=== PATIENT | female | born 1980 | race Caucasian/White ===

== ENCOUNTER 2021-03-19 16:03 | Inpatient (IN) | payer BC ==
[~2021-03-19] VITALS: Ht 157.5 cm; Wt 61.2 kg
[2021-03-19] MEDS ORDERED: KETOROLAC TROMETHAMINE 30 MG INJ IVP ONE (16:45)
[2021-03-19] MEDS ORDERED: DEXAMETHASONE SOD PHOSPHATE 4 MG INJ IV ONE (16:45)
[2021-03-19 16:54] LABS: HEMATOCRIT 41.4 % (31.2-41.9); MEAN CORPUSCULAR HEMOGLOBIN 29.8 uug (24.7-32.8); MEAN CORPUSCULAR VOLUME 90.7 fL (75.5-95.3); PLATELET COUNT (AUTO) 288 K/uL (179-408)
[2021-03-19] MEDS ORDERED: KETOROLAC TROMETHAMINE 30 MG INJ ONE (16:54)
[2021-03-19] MEDS ORDERED: DEXAMETHASONE SOD PHOSPHATE 10 MG INJ ONE (17:00)
[2021-03-19 17:01] LABS: CARBON DIOXIDE 30 mmol/L (21-32); CHLORIDE 102 mmol/L (98-107); CREATININE 0.8 mg/dL (0.6-1.3); GLUCOSE 104 mg/dL (74-106); POTASSIUM 3.8 mmol/L (3.5-5.1); UREA NITROGEN, BLOOD 6 mg/dL (7-18)
[2021-03-19 17:03] LABS: *URINE HCG, QUAL NEGATIVE (NEGATIVE)
[2021-03-19 17:07] LABS: ALANINE AMINOTRANSFERASE 28 U/L (14-59); ALKALINE PHOSPHATASE 53 U/L (50-136); ASPARTATE AMINOTRANSFERASE 32 U/L (15-37); BILIRUBIN,TOTAL 0.3 mg/dL (0.2-1.0); TOTAL PROTEIN, SERUM 7.5 g/dL (6.4-8.2)
[2021-03-19] MEDS ORDERED: IV NORMAL SALINE 250 ML IV ONE (17:19)
[2021-03-19] MEDS ORDERED: SWABABLE VALVE TRANSFER SET EA MC ONE (17:19)
[2021-03-19] MEDS ORDERED: IOHEXOL 300MG/ML 100 ML INFUS..BTL ONE (17:19)
[2021-03-19] MEDS ORDERED: IV NS 1000 ML 1,000 ML IV ONE (17:45)
--- NOTE | 2021-03-19 18:04 | NUR ---
Pt still in imaging at this time.
[2021-03-19] MEDS ORDERED: VANCOMYCIN IV 1,000 MG in IV DEXTROSE 5% 250 ML IV ONE (20:00)
[2021-03-19] MEDS ORDERED: CEFAZOLIN 2 G in IV DEXTROSE 5% 100 ML IV ONE (20:00)
--- NOTE | 2021-03-19 20:06 | NUR ---
Pt. admitted to Med/Surg, under care of Monica Nowak NP Dx: Parotitis Belongs List completed
[2021-03-19] MEDS ORDERED: CEFAZOLIN 1 G VIAL ONE ×2 (20:12→23:49)
[2021-03-19] MEDS ORDERED: IV NS 1000 ML 1,000 ML IV SCH ×2 (20:15→21:15)
[2021-03-19] MEDS ORDERED: HYDROMORPHONE 1 MG/1 ML DISP.SYRIN IV ONE (20:15)
[2021-03-19] MEDS ORDERED: ONDANSETRON 4 MG/2 ML VIAL IV ONE (20:15)
[2021-03-19] MEDS ORDERED: VANCOMYCIN IV 200 ML ONE (20:54)
--- NOTE | 2021-03-19 22:00 | NUR ---
Received patient via gurney from ER. A/o x4. very pleasant when approached. Swelling noted to right side of face noted. Patient c/o mild pain, denies any needs for any pain medication at this time. vss. afebrile. Heplock noted to left ac #18 gauge. Oriented patient to room and call light. Call light in reach. All needs attended. Will continue to monitor and assess.
[2021-03-19] MEDS ORDERED: KETOROLAC TROMETHAMINE 30 MG INJ IM PRN (22:45)
[2021-03-19] MEDS ORDERED: MAGNESIUM HYDROXIDE 30 ML LIQUID UDC PO PRN (22:45)
[2021-03-19] MEDS ORDERED: ONDANSETRON 4 MG/2 ML VIAL IV PRN (22:45)
[2021-03-19] MEDS ORDERED: Z GUARD REMEDY PASTE 57 GM TUBE TOP PRN (22:45)
[2021-03-19] MEDS ORDERED: ACETAMINOPHEN 325 MG TABLET PO PRN (22:45)
[2021-03-19 23:25] VITALS: BP 109/66
[2021-03-20] MEDS: IV NS 1000 ML 1,000 ML IV PRN ×2 (00:51→16:14)
[2021-03-20] MEDS ORDERED: CEFAZOLIN 1 G in IV DEXTROSE 5% 50 ML IV SCH (06:00)
[2021-03-20 06:35] VITALS: BP 95/52
[2021-03-20 07:06] LABS: HEMATOCRIT 37.1 % (31.2-41.9); MEAN CORPUSCULAR HEMOGLOBIN 29.8 uug (24.7-32.8); MEAN CORPUSCULAR VOLUME 90.9 fL (75.5-95.3); PLATELET COUNT (AUTO) 261 K/uL (179-408)
--- NOTE | 2021-03-20 07:30 | NUR ---
Patient received in bed, alert and oriented x4. Patient on RA with no SOB or difficulties breathing. No acute distress noted at this time. Patient states she has no pain or other discomforts at this time. Right side of patient's face slightly swollen, but patient states she feels much better and that the swelling has gone down significantly. Left AC IV is intact with IVF running at 75 mL/h as ordered with no redness or swelling at this time. Personal belongings and call light within easy reach. Will continue to monitor.
[2021-03-20 07:37] LABS: CREATININE 0.7 mg/dL (0.6-1.3); MAGNESIUM 1.7 mg/dL (1.8-2.4); PHOSPHOROUS 3.2 mg/dL (2.5-4.9)
[2021-03-20 07:38] LABS: THYROID STIMULATING HORMONE 0.323 mIU/mL (0.358-3.740)
[2021-03-20] MEDS: PANTOPRAZOLE SODIUM 40 MG VIAL IV SCH (08:22)
[2021-03-20] MEDS: DEXAMETHASONE SOD PHOSPHATE 4 MG INJ IV SCH ×2 (08:22→20:49)
[2021-03-20] MEDS: VANCOMYCIN IV 750 MG in IV DEXTROSE 5% 250 ML IV SCH ×2 (09:24→16:08)
[2021-03-20] MEDS: MAGNESIUM SULFATE/D5W 100 ML IV SCH ×2 (10:29→11:38)
[2021-03-20 12:00] VITALS: BP 98/54
[2021-03-20 16:52] VITALS: BP 99/47
--- NOTE | 2021-03-20 19:30 | NUR ---
PT AWAKE, ALERT AND ORIENTEDX4. RECEIVED PT IN NO ACUTE DISTRESS. IV INTACT. PT ON ROOM AIR. SAFETY AND COMFORT PROVIDED. WILL CONTINUE TO MONITOR.
[2021-03-20 21:02] VITALS: BP 90/48
[2021-03-21] MEDS: VANCOMYCIN IV 750 MG in IV DEXTROSE 5% 250 ML IV SCH ×2 (00:13→08:53)
[2021-03-21 04:45] VITALS: BP 105/62
--- NOTE | 2021-03-21 05:30 | NUR ---
PT SLEPT INTERMITTENTLY. PT IN NO ACUTE DISTRESS. PRESCRIBED MEDICATION GIVEN AND PT TOLERATED IT WELL. PT INSISTING SHE TOOK A DIFFERENT MEDICATION WHICH IS STEROID. TOLD HER THAT SHE WAS JUST GIVEN DECADRON MEDICATION WHICH IS A CORTICOSTEROID. SAFETY AND COMFORT PROVIDED. WILL ENDORSE TO INCOMING NURSE FOR CONTINUITY OF CARE.
[2021-03-21 08:00] VITALS: BP_SYST 101; BP_SYST 105; BP_DIAS 57; BP_DIAS 62
[2021-03-21 08:00] LABS: HEMATOCRIT 35.5 % (31.2-41.9); MEAN CORPUSCULAR HEMOGLOBIN 30.1 uug (24.7-32.8); MEAN CORPUSCULAR VOLUME 90.2 fL (75.5-95.3); PLATELET COUNT (AUTO) 252 K/uL (179-408)
[2021-03-21 08:05] LABS: CREATININE 0.6 mg/dL (0.6-1.3); PHOSPHOROUS 3.2 mg/dL (2.5-4.9)
[2021-03-21 08:06] LABS: MAGNESIUM 1.9 mg/dL (1.8-2.4)
[2021-03-21] MEDS: PANTOPRAZOLE SODIUM 40 MG VIAL IV SCH (08:53)
[2021-03-21] MEDS: DEXAMETHASONE SOD PHOSPHATE 4 MG INJ IV SCH (08:53)
[2021-03-21 12:00] VITALS: BP 109/63
[2021-03-21] MEDS ORDERED: METH4TAB3 PO (14:14)
[2021-03-21] MEDS ORDERED: AMOX-430 PO (14:14)
[2021-03-21 16:00] VITALS: BP 109/62
[2021-03-21] MEDS ORDERED: VANCOMYCIN IV 1,000 MG in IV DEXTROSE 5% 250 ML IV SCH (17:00)
--- NOTE | 2021-03-21 17:38 | NUR ---
ALERT, ORIENTED, AND APPROPRIATE. NO COMPLAINT OF PAIN ON THE RIGHT SIDE OF FACE, DESPITE THE FACT OF ITS SWELLING. REQUESTED A TUNA SANDWICH FOR LUNCH, GIVEN SEEN BY CHANGE ATTENDANT, DISCHARGE INSTRUCTIONS REVIEWED WITH THE PATIENT, AND WELL AWARE SHE WILL STOP BY HER FARMACY, ON THE WAY HOME TO REED REPAIRER HER MEDS PRESCRIBED. GETTING THE LAST DOSE OF VANCO EARLIER THAN SCHEDULED, THEN DISCHARGE TO HOME. EXPECTED TIME TO GET OUT OF HER IS 1800 TONITE.
== END 2021-03-21 18:40 | disposition home or self-care (01) | DRG 156 ==
LOC: ER 16:03 → MEDSURG3 21:21
PROVIDERS: ADMIT Registered Nurse; ATTEND Registered Nurse
DX: K11.21 Acute sialoadenitis (principal); D72.829 Elevated white blood cell count, unspecified; R59.0 Localized enlarged lymph nodes; Z20.822 Contact with and (suspected) exposure to COVID-19; T38.0X5A Adverse effect of glucocorticoids and synthetic analogues, initial encounter; Y92.89 Other specified places as the place of occurrence of the external cause
CPT/HCPCS: 36415; 70487; 70491; 83735; 84100; 84443; 84703; 85025; 87400; A4663; C9113; G0378; J0690; J1100; J1885; J3370; J3475; J7030; J7050; J7060; Q9967